=== PATIENT | female | born 1955 | race Caucasian/White ===

== ENCOUNTER 2022-07-10 12:24 | Emergency (ER) | payer OTHER ==
[~2022-07-10] VITALS: Ht 152.4 cm; Wt 72.6 kg
== END 2022-07-10 13:33 | disposition home or self-care (01) ==
LOC: ER 12:24
DX: S60.222A Contusion of left hand, initial encounter (principal); X50.1XXA Overexertion from prolonged static or awkward postures, initial encounter
CPT/HCPCS: 73130